=== PATIENT | female | born 1950 | race American Indian/Alaskan Native ===

== ENCOUNTER 2017-01-18 16:06 | Outpatient (CLI) | payer MEDICARE, OTHER ==
--- NOTE | 2017-01-18 18:20 | Magnetic Resonance Report ---
FINAL REPORT PROCEDURE: MR BRAIN WO CON TECHNIQUE: Magnetic resonance imaging of the brain was performed without contrast material. HISTORY: PT FELL AND HIT HEAD, pain COMPARISON: No prior studies are available for comparison. FINDINGS: Cerebellar tonsils are low-lying without suggestion of Chiari 1 malformation. Cerebral ventricles are normal in size. No areas of restricted diffusion are seen in the brain. Mild foci of increased T2 signal are seen in the supratentorial white matter. Findings could be from chronic small vessel ischemic changes. A demyelinating process, such as multiple sclerosis, would be a less likely etiology for these lesions. Normal flow voids are seen in the visualized portions of the vessels of the [place]. No intracranial hemorrhage or mass effect is seen. Paranasal sinuses and mastoid air cells appear clear of fluid. IMPRESSION: Likely mild chronic small vessel ischemic changes are seen without evidence of acute abnormality. A demyelinating process, such as multiple sclerosis, would be a less likely etiology for the appearance of the brain.
== END 2017-01-18 16:07 | disposition home or self-care (01) ==
LOC: MRI 16:06
DX: G50.0 Trigeminal neuralgia (principal); S09.90XD Unspecified injury of head, subsequent encounter; R41.0 Disorientation, unspecified; R56.9 Unspecified convulsions; Z91.81 History of falling; X58.XXXD Exposure to other specified factors, subsequent encounter
CPT/HCPCS: 70551